=== PATIENT | female | born 1995 | race Caucasian/White ===

== ENCOUNTER 2020-09-20 10:10 | Emergency (ER) | payer OTHER, SELFPAY ==
[2020-09-20 10:17] VITALS: BP 136/83; PULSE 93; RESP 17; TEMP 37; O2SAT 100; BMI 21.2
--- NOTE | 2020-09-20 10:46 | PC.NURSE ---
Episodes of cold white fingers, none at this time.
--- NOTE | 2020-09-20 11:10 | ED_ITS ---
HPI - Skin/Abscess/Foreign Bdy General Chief complaint: Skin/Abscess/Foreign Body Stated complaint: Loses circulation in both hands Time Seen by Provider: 09/20/20 10:47 Source: patient Mode of arrival: Ambulatory History of Present Illness HPI narrative: Patient complains of daily finger pain/discoloration that alternates bilateral fingers that effects digits numbers 2, 3, 4. Started 3 months ago. Patient showed picture of 1 of the digits when it happened about 2 months ago. It shows distal half of the finger that is white in color. Patient states when that happens feels cold and painful and last about 1 hour and resolved. No new changes in her health otherwise. No injury. No chemical exposure. No new stressors. No new medications. It can happen in cold or warm environments. 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 Currently no symptoms. Denies any medical problems or history. Review of Systems Review of Systems Narrative: GENERAL: Denies chills, fatigue, malaise, fever, sweats. HEENT: Denies sinus pain, ear pain, sore throat RESPIRATORY: Denies dyspnea, cough CARDIOVASCULAR: Denies chest pain, palpitations GASTROINTESTINAL: Denies nausea, vomiting, abdominal pain : Denies dysuria, frequency, hematuria MUSCULOSKELETAL: denies muscle or bony pain SKIN: Denies rash, skin lesions, complaints skin discoloration NEUROLOGIC: Denies weakness, numbness ROS Unobtainable: All systems reviewed & are unremarkable except as noted in HPI and below Patient History Social History Smoking Status: Current every day smoker Smoking Status: Current every day smoker tobacco type: cigarettes alcohol intake frequency: other Substance Use Type: does not use Exam Narrative Exam Narrative: GENERAL: in no distress, not toxic not dyspneic HEAD: Normocephalic. EYES: Pupils equal round No scleral icterus. No injection no discharge ENT: Mucous membranes moist. NECK: Trachea midline. CARDIOVASCULAR: Regular rate and rhythm without murmurs RESPIRATORY: Clear to auscultation. Breath sounds equal bilaterally. No wheezes, rales, or rhonchi. NEURO: AOx4. SKIN: Warm and dry, examination of the hands and fingers. They are warm soft and pink no discoloration or pallor. Light touch intact to all fingertips and thumb. Strong equal trolley collector. PSYCH: Not anxious, is cooperative Initial Vital Signs Initial Vital Signs: Vital Signs Temperature 98.6 F 09/20/20 10:17 Pulse Rate 93 H 09/20/20 10:17 Respiratory Rate 17 09/20/20 10:17 Blood Pressure 136/83 09/20/20 10:17 Pulse Oximetry 100 09/20/20 10:17 Course Course Course Narrative: No new issues during course of stay. Reevaluation(s) Reevaluation #1: Reviewed with patient no indication for lab or imaging at this time. She does have a provider at the [facility]. Informed her they can do outpatient laboratory studies and possible consideration of calcium channel blockers. Time: 11:16 Vital Signs Vital signs: Vital Signs - 8 hr 09/20/20 10:17 Temperature 98.6 F Pulse Rate 93 H Respiratory Rate 17 Blood Pressure 136/83 Pulse Oximetry 100 MDM - Skin/Abscess/Foreign Bdy Differential Diagnosis Differential diagnosis: Likely other (Raynaud syndrome/phenomenon/disease) MDM Narrative Medical decision making narrative: Appropriate for discharge home and follow-up with primary care. She does have primary care. Outpatient laboratory studies can be done and review for possible calcium channel blockers or vasodilators. Ongoing for 3 months. Appropriate for outpatient workup Discharge Plan Departure Patient Disposition: Home Clinical Impression: Raynaud phenomenon Qualifiers: Raynaud?s-associated gangrene presence: without gangrene Qualified Code(s): I73.00 - Raynaud's syndrome without gangrene Instructions: Raynaud Disease and Phenomenon Activity Restrictions/Additional Instructions: See family doctor within a week for recheck and continued evaluation for Raynaud syndrome/phenomenon. Be sure to keep hands and fingers warm. Return if worse or any questions or concerns.
== END 2020-09-20 11:15 | disposition home or self-care (01) ==
PROVIDERS: Emergency Provider Emergency Medicine
DX: I73.00 Raynaud's syndrome without gangrene (principal)
CPT/HCPCS: 99281